=== PATIENT | female | born 1955 | race Caucasian/White ===

== ENCOUNTER → 2016-06-09 | Outpatient (CLI) | payer OTHER ==
--- NOTE | ~2016-06-09 | CT98 ---
[facility] A Service of [facility] & [facility] RADIOLOGY TEXT RESULTS PATIENT: FRANCINE PIMENTEL LOCATION: [facility] : 53 UNIT #: [id number] AGE: [address]: Opal Markham MD SEX: F ORDER DR: [id number] [id number] [facility]. [place], [place] [address] [id number] O MR#: [id number] Acc #: [id number] NAME: FRANCINE PIMENTEL : 1955 SEX: F STUDY DATE/TIME: 06/09/2016 12:47 UNIT: [facility] ROOM: STUDY DESCRIPTION: CT Lumbar Spine Wo Cont Attending Physician: Opal Markham M.D. Referring Physician: Opal Markham M.D. Ordering Physician: Opal Markham M.D. Primary Care Physician: Shy Jones A.P.R.N. MEDICAL IMAGING REPORT This report is preliminary unless electronic signature is present EXAM Lumbar spine CT, no contrast, 06/09/[address] without contrast with multiplanar reformats. This CT exam was performed with one or more of the following radiation dose reduction techniques: Automatic exposure control, adjustment of mA and/or kV according to patient size, and iterative reconstruction. COMPARISON None. CLINICAL HISTORY Left side low back pain for 1 year. FINDINGS There is very slight scoliosis but alignment is otherwise normal. There is no fracture or bone erosion or destruction. The paraspinous soft tissues are unremarkable. There is mild or loud-xn-ipoaqkan sacroiliac joint degenerative change as well. At L1-2, there is no canal stenosis, or foraminal stenosis. At L2-3, there is slight discogenic change but no canal stenosis or foraminal stenosis. At 3-4, there is a broad disc bulge, facet arthropathy and mild or aqfq-id-zbyknrdi canal stenosis and mild or pepi-zv-fbldmglr right and left foraminal stenosis. At 4-5, there is slight degenerative change but no canal stenosis and mild bilateral foraminal narrowing. [facility] A Service of [facility] & [facility] RADIOLOGY TEXT RESULTS PATIENT: FRANCINE PIMENTEL LOCATION: [facility] : 53 UNIT #: [id number] AGE: [address]: Opal Markham MD SEX: F ORDER DR: At 5-1, there is no canal or foraminal stenosis. IMPRESSION Discogenic change at L3-4 with mild or ytyu-sa-xyuniica canal and bilateral foraminal narrowing, no acute-appearing abnormality at any level. Dictated by... Chito Danielson M.D. THIS IS AN ELECTRONICALLY VERIFIED REPORT Chito Danielson M.D. at 06/13/2016 3:59 PM JOHNY/remi TD: 06/11/2016 22:27 JOB #: [id number] MEDICAL IMAGING REPORT Page 1 of 1 COPY
== END | disposition home or self-care (01) ==
LOC: CCAT 12:27
DX: M54.5 Low back pain (principal)
CPT/HCPCS: 72131